=== PATIENT | female | born 2000 | race American Indian/Alaskan Native ===

== ENCOUNTER 2019-03-04 09:34 | Emergency (ER) | payer OTHER, MEDICAID ==
[2019-03-04 09:41] VITALS: BP 117/59
--- NOTE | 2019-03-04 10:52 | Emergency Department Report ---
Vomiting/Diarrhea - HPI Chief Complaint: Nausea/Vomiting/Diarrhea Stated Complaint: ABD PAIN/NAUSEA Duration: 1 week Severity: mild Nausea/Vomiting Severity: Mild Diarrhea Severity: None Pain Location: Generalized Pain Severity: Mild Symptoms: Yes Able to Tolerate Fluids, No Watery Diarrhea, No Bloody diarrhea, No Fever, No Recent Unusual Foods, No Recent Untreated Water, No Recent use of Antibiotics, No Family w/ Similar Symptoms, No Contacts w/ Similar Symptoms, No Rash, No Hematuria, No Recent URI Symptoms Other History: This is a 18-year-old female presents with nausea, vomiting, and abdominal pain for one week. Last period 01/28/2019 0. Patient stated she is concerned about possible . Reports abdominal pain as a cramping sensation that is intermittent. She is currently off control. She denies vaginal discharge, bleeding, dysuria, urinary frequency, urgency, or back pain. ED Review of Systems ROS: Stated complaint: ABD PAIN/NAUSEA Other details as noted in HPI Constitutional: denies: chills, fever Respiratory: denies: cough, shortness of breath, wheezing Cardiovascular: denies: chest pain, palpitations Gastrointestinal: abdominal pain, nausea, vomiting. denies: diarrhea Genitourinary: denies: urgency, dysuria, discharge Skin: denies: rash, lesions Neurological: denies: headache, weakness, paresthesias Psychiatric: denies: anxiety, depression ED Past Medical Hx - Past Medical History Previous Medical History?: No - Surgical History Past Surgical History?: No - Social History Smoking Status: Current Some Day Smoker Substance Use Type: Marijuana - Medications Home Medications: Home Medications Medication Instructions Recorded Confirmed Last Taken Type 21/Iron Fu/Folic Acid 1 each PO DAILY #30 tablet 03/04/19 Unknown Rx [ Complete Caplet] Vomiting Diarrhea Exam - Exam General: Vital signs noted. No distress. Alert and acting appropriately. HEENT: Yes Moist Mucous Membranes, No Pharyngeal Erythema, No Pharyngeal Exudates, No Rhinorrhea, No Conjuctival Injection, No Frontal Tenderness, No Maxillary Tenderness Neck: No Adenopathy, No Rigidity Lungs: Yes Clear Lung Sounds, Yes Good Air Exchange, No Wheezes, No Stridor, No Cough, No Nasal Flaring, No Retractions, No Use of Accessory Muscles Heart exam: Regular: Yes, Murmur: No, Tachycardia: No Abdomen: Tenderness: No, Peritoneal Signs: No, Distention: No, Hyperactive Bowel sounds: No Skin exam: Rash: No, Edema: No, Normal turgor: Yes Neurologic: Alert and oriented, no deficits. Musculoskeletal: Unremarkable. ED Course Vital Signs 03/04/19 09:40 Temperature 99.3 F Pulse Rate 95 H Respiratory 18 Rate Blood Pressure 117/59 O2 Sat by Pulse 99 Oximetry ED Medical Decision Making - Lab Data Lab Results 03/04/19 03/04/19 Range/Units 11:32 Unknown HCG, Quant 1447 H (0-4) mIU/mL Urine Color Yellow (Yellow) Urine Turbidity Slightly-cloudy (Clear) Urine pH 6.0 (5.0-7.0) Ur Specific [place] 1.030 (1.003-1.030) Urine Protein <15 mg/dl (Negative) mg/dL Urine Glucose (UA) Neg (Negative) mg/dL Urine Ketones Tr (Negative) mg/dL Urine Blood Neg (Negative) Urine Nitrite Neg (Negative) Urine Bilirubin Neg (Negative) Urine Urobilinogen < 2.0 (<2.0) mg/dL Ur Leukocyte Esterase Sm (Negative) Urine WBC (Auto) 6.0 (0.0-6.0) /HPF Urine RBC (Auto) 4.0 (0.0-6.0) /HPF U Epithel Cells (Auto) 9.0 (0-13.0) /HPF Urine Bacteria (Auto) 4+ (Negative) /HPF Urine Mucus 2+ /HPF Urine HCG, Qual Positive A (Negative) - Radiology Data Radiology results: report reviewed ULTRASOUND OB LESS THAN 14 WEEKS FETUS ULTRASOUND OB TRANSVAGINAL HISTORY: Abdominal pain and confirmed . COMPARISON: None. TECHNIQUE: Transabdominal and transvaginal ultrasound with color doppler interrogation. FINDINGS: Uterus: Anteverted. 7.3 x 3.5 x 4.3 cm. A few small scattered uterine fibroids are suspected. Endometrium: 12 mm in thickness. A tiny cyst is identified in the uterine fundus which probably represents a very early gestational sac. No pole, yolk sac or heart rate could be detected at this time. Gestational sac diameter correlates with a four-week six-day . Right ovary: 3.8 x 2.8 x 2.5 cm. There is a complex partially cystic area in the right ovary measuring up to 2.4 cm. This probably represents a corpus luteum cyst. Left ovary: 2.2 x 1.1 x 2.2 cm. No focal abnormality. No pelvic fluid or mass is identified. Normal color doppler interrogation. IMPRESSION: Probable very early intrauterine as described. Followup is recommended. - Medical Decision Making Patient was examined by me. Vitals are normal and patient is in no acute distress. Obtained a urinalysis, urine hCG, hCG quant, and OB ultrasound. Quant 1447 all other labs unremarkable. Probable very early intrauterine as described. Followup is recommended. Patient instructed to have repeat hCG quant in 48 hours with [facility] or in ER to r/o ectopic . Start complete. Patient discharged home in stable condition. Critical care attestation.: If time is entered above; I have spent that time in minutes in the direct care of this critically ill patient, excluding procedure time. ED Disposition Clinical Impression: confirmed by positive blood test, Threatened miscarriage in early Nausea and vomiting Qualifiers: Vomiting type: unspecified Vomiting Intractability: non-intractable Qualified Code(s): R11.2 - Nausea with vomiting, unspecified Abdominal pain Qualifiers: Abdominal location: generalized Qualified Code(s): R10.84 - Generalized a bdominal pain Disposition: TO HOME OR SELFCARE Is pt being admited?: No Does the pt Need Aspirin: No Condition: Stable Instructions: Morning Sickness (ED), (ED) Additional Instructions: Have repeat hCG quant labs in 48 hours with [facility] or ER. Your hCG quantitative on this visit was 1447. Remain on bed rest. Follow up with [facility] in 24-48 hours. Return to ER if increased vaginal bleeding, abdominal pain, and low back pain. Prescriptions: 21/Iron Fu/Folic Acid [ Complete Caplet] 1 each PO DAILY #30 tablet Referrals: MICHEL CALDWELL MD [Primary Care Provider] - 3-5 Days [facility] [Provider Group] - 3-5 Days [facility] [Provider Group] - 3-5 Days [facility] [Provider Group] - 3-5 Days Forms: Work/School Release Form(ED) Time of Disposition: 12:55
[2019-03-04 11:11] LABS: Bacteria,Urine 4+ /HPF (Negative); Bilirubin,Urine NEG (Negative); Blood,Urine NEG (Negative); Color,Urine Yellow (Yellow); Mucus,Urine 2+ /HPF; Protein,Urine <15 mg/dL mg/dL (Negative); Urobilinogen,Urine < 2.0 mg/dL (<2.0)
[2019-03-04 11:14] LABS: HCG Qualitative,Urine Positive (Negative)
--- NOTE | 2019-03-04 12:25 | Ultrasound Report ---
ULTRASOUND OB LESS THAN 14 WEEKS FETUS ULTRASOUND OB TRANSVAGINAL HISTORY: Abdominal pain and confirmed . COMPARISON: None. TECHNIQUE: Transabdominal and transvaginal ultrasound with color doppler interrogation. FINDINGS: Uterus: Anteverted. 7.3 x 3.5 x 4.3 cm. A few small scattered uterine fibroids are suspected. Endometrium: 12 mm in thickness. A tiny cyst is identified in the uterine fundus which probably represents a very early gestational sac. No pole, yolk sac or heart rate could be detected at this time. Gestational sac diameter correlates with a four-week six-day . Right ovary: 3.8 x 2.8 x 2.5 cm. There is a complex partially cystic area in the right ovary measuring up to 2.4 cm. This probably represents a corpus luteum cyst. Left ovary: 2.2 x 1.1 x 2.2 cm. No focal abnormality. No pelvic fluid or mass is identified. Normal color doppler interrogation. IMPRESSION: Probable very early intrauterine as described. Followup is recommended.
== END 2019-03-04 13:08 | disposition home or self-care (01) ==
LOC: ED 09:34
DX: O20.0 Threatened abortion (principal); O21.9 Vomiting of pregnancy, unspecified; O99.331 Smoking (tobacco) complicating pregnancy, first trimester; F12.10 Cannabis abuse, uncomplicated; Z3A.01 Less than 8 weeks gestation of pregnancy
CPT/HCPCS: 36415; 76801; 76817; 81001; 81025; 84702; 99284

== ENCOUNTER 2019-03-23 06:32 | Emergency (ER) | payer OTHER, MEDICAID ==
[2019-03-23 07:14] LABS: Basophils % (Auto) 0.6 % (0.0-1.8); Eosinophils # (Auto) 0.1 K/mm3 (0.0-0.4); Hematocrit 37.7 % (30.3-42.9); Hemoglobin 12.6 gm/dl (10.1-14.3); Lymphocytes # (Auto) 1.8 K/mm3 (1.2-5.4); Lymphocytes % (Auto) 23.6 % (13.4-35.0); Mean Corpuscular HGB Conc 33 % (30-34); Mean Corpuscular Volume 82 fl (79-97); Monocytes # (Auto) 0.4 K/mm3 (0.0-0.8); Monocytes % (Auto) 5.5 % (0.0-7.3); Platelet Count 332 K/mm3 (140-440); Red Blood Count 4.58 M/mm3 (3.65-5.03); Red Cell Distribution Width 13.7 % (13.2-15.2)
[2019-03-23 07:15] LABS: Bacteria,Urine 4+ /HPF (Negative); Bilirubin,Urine NEG (Negative); Blood,Urine LG (Negative); Color,Urine Yellow (Yellow); Mucus,Urine 3+ /HPF; Protein,Urine <15 mg/dL mg/dL (Negative); Urobilinogen,Urine < 2.0 mg/dL (<2.0)
--- NOTE | 2019-03-23 09:14 | Emergency Department Report ---
ED HPI - General Chief complaint: Vaginal Bleeding Stated complaint: 7WKS /SPOTTING Time Seen by Provider: 03/23/19 07:53 Source: patient Mode of arrival: Ambulatory Limitations: No Limitations - History of Present Illness Initial comments: This is a 18-year-old female nontoxic, well nourished in appearance, no acute signs of distress presents to the ED with c/o of vaginal bleeding x1 day. Patient stated yesterday she noticed some spotting this morning x3 occasions and primarily only when she wipes after the restroom. Patient denies any abdominal or pelvic pain. Patient denies any vaginal discharge or foul odor. Patient den ies any nausea, vomiting, chest pain, shortness of breathe, fever, chills, headache, stiff neck, numbness, tingling. Patient denies any urinary symptoms. Patient denies any allergies or PMH. MD Complaint: vaginal bleeding -: days(s) (1) Severity scale (0 -10): 0 Improves with: none Worsens with: none Associated symptoms: vaginal bleeding. denies: nausea/vomiting, vaginal discharge, abdominal pain, dysuria, headache, vision changes, malaise, dysp aruenia, rash, seizure, shortness of breath, syncope, weakness Vaginal bleeding: light :: Yes Number of weeks : 7 Pre-bayron care: none - Related Data Previous Rx's Medication Instructions Recorded Last Taken Type 21/Iron Fu/Folic Acid 1 each PO DAILY #30 tablet 03/04/19 Unknown Rx [ Complete Caplet] 21/Iron Fu/Folic Acid 1 each PO DAILY #30 tablet 03/23/19 Unknown Rx [ Complete Caplet] Allergies Allergy/AdvReac Type Severity Reaction Status Date / Time No Known Allergies Allergy Unverified 03/04/19 09:36 ED Review of Systems ROS: Stated complaint: 7WKS /SPOTTING Other details as noted in HPI Constitutional: denies: chills, fever Eyes: denies: eye pain, eye discharge, vision change ENT: denies: ear pain, throat pain Respiratory: denies: cough, shortness of breath, wheezing Cardiovascular: denies: chest pain, palpitations Endocrine: no symptoms reported Gastrointestinal: denies: abdominal pain, nausea, diarrhea Genitourinary: abnormal menses. denies: urgency, dysuria, discharge Musculoskeletal: denies: back pain, joint swelling, arthralgia Skin: denies: rash, lesions Neurological: denies: headache, weakness, paresthesias Psychiatric: denies: anxiety, depression Hematological/Lymphatic: denies: easy bleeding, easy bruising ED Past Medical Hx - Past Medical History Previous Medical History?: No - Surgical History Past Surgical History?: No - Social History Smoking Status: Never Smoker - Medications Home Medications: Home Medications Medication Instructions Recorded Confirmed Last Taken Type 21/Iron Fu/Folic Acid 1 each PO DAILY #30 tablet 03/04/19 Unknown Rx [ Complete Caplet] 21/Iron Fu/Folic Acid 1 each PO DAILY #30 tablet 03/23/19 Unknown Rx [ Complete Caplet] ED Physical Exam - General Limitations: No Limitations General appearance: alert, in no apparent distress - Head Head exam: Present: atraumatic, normocephalic - Neck Neck exam: Present: normal inspection, full ROM - GI/Abdominal GI/Abdominal exam: Present: soft, normal bowel sounds. Absent: distended, tenderness, guarding, rebound, rigid, diminished bowel sounds - Extremities Exam Extremities exam: Present: normal inspection, full ROM - Back Exam Back exam: Present: normal inspection, full ROM. Absent: tenderness, CVA tenderness (R), CVA tenderness (L), muscle spasm, paraspinal tenderness, vertebral tenderness, rash noted - Neurological Exam Neurological exam: Present: alert, oriented X3 - Psychiatric Psychiatric exam: Present: normal affect, normal mood - Skin Skin exam: Present: warm, dry, intact, normal color. Absent: rash ED Course Vital Signs 03/23/19 06:37 Temperature 98.7 F Pulse Rate 92 H Respiratory 18 Rate Blood Pressure 116/63 O2 Sat by Pulse 100 Oximetry - Reevaluation(s) Reevaluation #1: 03/23/19 09:15 Patient is speaking in full sentences with no signs of distress noted. ED Medical Decision Making - Lab Data Result diagrams: 03/23/19 06:54 - Medical Decision Making This is a 18-year-old female presents with threatened miscarriage. Patient is stable and was examined by me. Normal abdominal exam. US OB obtained and dictated by the radiologist. Ua obtained. Quantative serum test obtained. Pat ient notified of the US report with no questions noted by the patient. Patient was instructed f/u with [facility] in 2 days. RH factor positive. Labs within normal limits. At time of discharge, the patient does not seem toxic or ill in appearance. No acute signs of distress noted. Patient agrees to discharge treatment plan of care. No further questions noted by the patient. Critical care attestation.: If time is entered above; I have spent that time in minutes in the direct care of this critically ill patient, excluding procedure time. ED Disposition Clinical Impression: Threatened miscarriage Disposition: DC-01 TO HOME OR SELFCARE Is pt being admited?: No Does the pt Need Aspirin: No Condition: Stable Instructions: Threatened Miscarriage (ED) Additional Instructions: Follow-up with a [facility] doctor in 2-3 days or if symptoms worsen and continue return to emergency room as soon as possible. Prescriptions: 21/Iron Fu/Folic Acid [ Complete Caplet] 1 each PO DAILY #30 tablet Referrals: MADDY NAVARRO MD [Primary Care Provider] - 3-5 Days KASEY ADAM MD [Staff Physician] - 3-5 Days [facility] [Provider Group] - 3-5 Days Forms: Work/School Release Form(ED)
--- NOTE | 2019-03-23 09:40 | Ultrasound Report ---
PROCEDURE: US OB <= 14 WEEKS FETUS TECHNIQUE: Early obstetrical ultrasound performed. Transabdominal and transvaginal imaging imaging HISTORY: vaginal bleeding COMPARISON: None FINDINGS: There is an intrauterine gestational sac seen. It contains a yolk sac and pole. [place]-rump length measurement corresponds to gestational age of 7 weeks 4 days and DANIAL of 11/05/2019. cardiac activity seen measured at 133 bpm. There is no abnormal adnexal mass seen. There is no subchorionic hemorrhage seen. IMPRESSION: There is a single live intrauterine of approximately 7 weeks 4 days with corresponding DANIAL of 11/05/2019. This document is electronically signed by Esther Woodall MD., Mar 23 2019 09:38:51 AM ET
--- NOTE | 2019-03-23 09:42 | Ultrasound Report ---
PROCEDURE: US OB TRANSVAGINAL TECHNIQUE: Early obstetrical ultrasound performed. Transabdominal and transvaginal imaging imaging HISTORY: vaginal bleeding COMPARISON: None FINDINGS: There is an intrauterine gestational sac seen. It contains a yolk sac and pole. [place]-rump length measurement corresponds to gestational age of 7 weeks 4 days and DANIAL of 11/05/2019. cardiac activity seen measured at 133 bpm. There is no abnormal adnexal mass seen. There is no subchorionic hemorrhage seen. IMPRESSION: There is a single live intrauterine of approximately 7 weeks 4 days with corresponding DANIAL of 11/05/2019. This document is electronically signed by Esther Woodall MD., Mar 23 2019 09:40:07 AM ET
[2019-03-23 10:40] VITALS: BP 121/74
== END 2019-03-23 10:40 | disposition home or self-care (01) ==
LOC: ED 06:32
DX: O20.0 Threatened abortion (principal); Z3A.01 Less than 8 weeks gestation of pregnancy
CPT/HCPCS: 36415; 76801; 76817; 81001; 84702; 85025; 86850; 86900; 86901; 99284

== ENCOUNTER 2022-03-11 18:22 | Inpatient (IN) | payer OTHER, MEDICAID ==
[2022-03-11] MEDS ORDERED: OXYTOCIN 10 UNIT/1 ML INJ IM PRN (19:44)
[2022-03-11] MEDS ORDERED: LOPERAMIDE 2 MG CAP PO PRN (19:44)
[2022-03-11] MEDS ORDERED: METHYLERGONOVINE MALEATE 0.2 MG/ML VIAL IM PRN (19:44)
[2022-03-11] MEDS ORDERED: miSOPROStol 200 MCG TAB PR PRN (19:44)
[2022-03-11] MEDS ORDERED: TERBUTALINE 1 MG/1 ML INJ SUB-Q PRN (19:44)
[2022-03-11] MEDS ORDERED: ACETAMINOPHEN 325 MG TAB PO PRN (19:44)
[2022-03-11] MEDS ORDERED: ONDANSETRON 4 MG/2 ML INJ IV PRN (19:44)
[2022-03-11] MEDS ORDERED: ePHEDrine SULFATE 50 MG/1 ML INJ IV PRN (19:44)
[2022-03-11] MEDS ORDERED: CARBOPROST TROMETHAMINE 250 MCG/1 ML INJ IM PRN (19:44)
[2022-03-11] MEDS ORDERED: fentaNYL 100 MCG/2 ML INJ IV PRN (19:44)
[2022-03-11] MEDS ORDERED: MINERAL OIL 30 ML ORAL LIQD PO PRN (19:44)
[2022-03-11] MEDS ORDERED: BUTORPHANOL 2 MG/1 ML INJ IV PRN (19:44)
[2022-03-11] MEDS ORDERED: LACTATED RINGERS 1,000 ML IV SCH (19:45)
[2022-03-11] MEDS ORDERED: OXYTOCIN DRIP 30 UNITS/500 ML BAG IV SCH (20:00)
[2022-03-11] MEDS ORDERED: LIDOCAINE (2%) 20 MG/1 ML VIAL 20 ML MDV INFILTRATI ONE (20:15)
--- NOTE | 2022-03-11 20:46 | Ultrasound Report ---
ULTRASOUND OBSTETRIC LIMITED ULTRASOUND BIOPHYSICAL PROFILE INDICATION / CLINICAL INFORMATION: r/o pprom today. Clinical Gestational Age (GA) in weeks, days: Unknown TECHNIQUE: Transabdominal. COMPARISON: None available. FINDINGS: Single intrauterine in cephalic position. BREATHING MOVEMENT = 2 GROSS BODY MOVEMENT = 2 TONE = 2 QUALITATIVE AMNIOTIC FLUID VOLUME = 2 TOTAL BIOPHYSICAL SCORE = 8/8 HEART RATE (beats per minute): 149 AMNIOTIC FLUID INDEX (cm) = 9.1 (normal = 7-24 cm) PRESENTATION: Cephalic. ADDITIONAL FINDINGS: None. IMPRESSION: 1. Single intrauterine with Biophysical Score = 8/8 2. Normal KENDALL. Signer Name: Stuart Reyes MD Signed: 03/11/2022 8:41 PM Workstation Name: [email or web address]
[2022-03-11] MEDS ORDERED: AMPICILLIN/NS 2 GM/100 ML 2 GM/100 ML BAG IV ONE (21:00)
[2022-03-11] MEDS ORDERED: BETAMET ACET/BETAMET NA PH 6 MG/ML INJ 5 ML MDV IM ONE (21:00)
[2022-03-11 21:07] LABS: Hematocrit 31.3 % (30.3-42.9); Hemoglobin 10.5 gm/dl (10.1-14.3); Mean Corpuscular HGB Conc 33 % (30-34); Mean Corpuscular Volume 76 fl (79-97); Platelet Count 318 K/mm3 (140-440); Red Blood Count 4.14 M/mm3 (3.65-5.03); Red Cell Distribution Width 15.2 % (13.2-15.2)
[2022-03-11 21:16] LABS: Bacteria,Urine 1+ /HPF (Negative); Bilirubin,Urine NEG (Negative); Blood,Urine SM (Negative); Color,Urine Yellow (Yellow); Mucus,Urine 1+ /HPF; Protein,Urine <15 mg/dL mg/dL (Negative)
[2022-03-11 21:24] LABS: Amphetamine Screen,Urine Negative; Benzodiazepines Screen,Urine Negative; Cannabinoid Screen,Urine Negative; Cocaine Screen,Urine Negative; Methadone Screen,Urine Negative; Opiate Screen,Urine Negative
[2022-03-11 21:45] LABS: Hepatitis C Virus Antibody Non-Reactive (NonReactive)
[2022-03-11] MEDS ORDERED: PENICILLIN G POTASSIUM 5 MIL.UNITS in SODIUM CHLORIDE 0.9% 50 ML IV ONE (22:00)
--- NOTE | 2022-03-12 01:15 | History and Physical Report ---
History of Present Illness Date of examination: 03/12/22 Date of admission: 03/11/22 19:44 Chief complaint: LOF History of present illness: at 35.4ks by LMP c/w U/S. care at [facility]. pt here with at 17:30pm on 03/11/22. Pt denies vag bleed or headache or painful ctx. Pt admits to movement. records with A positive, rubella immune, HepBsAg neg, HIV negative and RPR Non-reactive. GBS negative 12/30/21 which is more than wks ago. Past History Past Medical History: no pertinent history Past Surgical History: no surgical history Family/Genetic History: none Social history: no significant social history - Obstetrical History Expected Date of Delivery: 04/12/22 Actual Gestation: 35 Week(s) 4 Day(s) : 2 Hx # Term Pregnancies: 1 Number of Living Children: 1 Medications and Allergies Allergies Allergy/AdvReac Type Severity Reaction Status Date / Time No Known Allergies Allergy Verified 03/11/22 21:43 Home Medications Medication Instructions Recorded Confirmed Last Taken Type 21/Iron Fu/Folic Acid 1 each PO DAILY #30 tablet 03/04/19 Unknown Rx [ Complete Caplet] 21/Iron Fu/Folic Acid 1 each PO DAILY #30 tablet 03/23/19 Unknown Rx [ Complete Caplet] HYDROcodone/APAP 5-325 [[place] 1 each PO Q6HR PRN #12 tablet 05/27/20 Unknown Rx 5-325 mg TAB] Active Meds: Active Medications Acetaminophen (Acetaminophen 325 Mg Tab) 650 mg PO Q4H PRN PRN Reason: Pain, Mild (1-3) Butorphanol Tartrate (Butorphanol 2 Mg/1 Ml Inj) 2 mg IV Q2H PRN PRN Reason: Pain , Severe (7-10) Carboprost Tromethamine (Carboprost Tromethamine 250 Mcg/1 Ml Inj) 250 mcg IM ONCE PRN PRN Reason: Uterine Bleeding Ephedrine Sulfate (Ephedrine Sulfate 50 Mg/1 Ml Inj) 10 mg IV Q2M PRN PRN Reason: Hypotension Fentanyl (Fentanyl 100 Mcg/2 Ml Inj) 100 mcg IV Q2H PRN PRN Reason: Pain,Severe (7-10) LABOR PAIN Lactated Ringer's (Lactated Ringers) 1,000 mls @ 125 mls/hr IV DIRECT KIMBERLY Last Admin: 03/11/22 21:54 Dose: 125 mls/hr Oxytocin/Sodium Chloride (Pitocin/Ns 30 Unit/500ml) 30 units in 500 mls @ 40 mls/hr IV TITR KIMBERLY; Protocol Penicillin G Potassium 3 mil. (units/ Sodium Chloride) 50 mls @ 100 mls/hr IV Q4H KIMBERLY; Protocol Loperamide HCl (Loperamide 2 Mg Cap) 2 mg PO ONCE PRN PRN Reason: give with Hemabate Methylergonovine Maleate (Methylergonovine Maleate 0.2 Mg/Ml Vial) 0.2 mg IM ONCE PRN PRN Reason: Uterine Bleeding Mineral Oil (Mineral Oil 30 Ml Oral Liqd) 30 ml PO QHS PRN PRN Reason: Constipation Misoprostol (Misoprostol 200 Mcg Tab) 800 mcg SC ONCE PRN PRN Reason: Uterine Bleeding Ondansetron HCl (Ondansetron 4 Mg/2 Ml Inj) 4 mg IV Q8H PRN PRN Reason: Nausea And Vomiting Oxytocin (Oxytocin 10 Unit/1 Ml Inj) 10 unit IM ONCE PRN PRN Reason: Uterine Bleeding Terbutaline Sulfate (Terbutaline 1 Mg/1 Ml Inj) 0.25 mg SUB-Q ONCE PRN PRN Reason: Hyperstimulation/Hypertonicity Review of Systems All systems: negative (leakage of fluid) - Vital Signs Vital signs: Vital Signs Pulse Pulse Ox 116 H 100 03/11/22 18:24 03/11/22 18:24 Temp Pulse Resp BP Pulse Ox 98.0 F 85 99 03/11/22 21:42 03/12/22 00:51 03/12/22 00:51 - Physical Exam Breasts: Positive: deferred Cardiovascular: Regular rate Lungs: Positive: Normal air movement Abdomen: Positive: soft Genitourinary (Female): Positive: normal external genitalia Vagina: Positive: normal moisture Uterus: Positive: enlarged (non-tender) - Obstetrical FHR: category 1 Uterine Contraction Monitor Mode: External Cervical Dilatation: 4 (2cm in triage) Cervical Effacement Percentage: 80 station: -1 Uterine Contraction Pattern: Irregular Uterine Contraction Intensity: Mild Results Result Diagrams: 03/11/22 20:48 Abnormal lab results 03/11/22 03/11/22 Range/Units 18:34 20:48 MCV 76 L (79-97) fl MCH 25 L (28-32) pg Membranes Rupture Positive A (Negative) All other labs normal. Assessment and Plan PPROM at 35.2wk with clear fluid confirmed with rom plus, KENDALL 9 in latent labor; unknown GBS (that is, the 35wk GBS was not redone) s/p betamethasone 12mg 1. Pt admitted over 4hrs however just receiving the GBS prophylaxis with PCN 5 per her nurse due to pharmacy not delivering the med 2. Will augment labor with IV pitocin when pt is about to get her next dose 3. May have epidural when desired 4. U/S for EFW still to be done. Pt is only 4ft 11 Plan of care discussed with pt, expect
[2022-03-12] MEDS ORDERED: PENICILLIN G POTASSIUM 3 MIL.UNITS in SODIUM CHLORIDE 0.9% 50 ML IV SCH (02:00)
--- NOTE | 2022-03-12 02:15 | Ultrasound Report ---
US OB limited INDICATION / CLINICAL INFORMATION: weight and placental location COMPARISON: None available. TECHNIQUE: Using a transcutaneous probe, multiple grayscale, color Doppler, and spectral Doppler imag es of the uterus and fetus were captured and stored. FINDINGS: Single cephalic fetus with heart rate of 130 bpm is demonstrated. Anterior placenta demonstrated. No ultrasound abnormality of the placental interface is demonstrated. Biparietal Diameter = 7.9 cm = 31, 6 weeks, days Head Circumference = 28.8 cm = 31, 4 weeks, days Abdominal Circumference = 27.0 cm = 31, 1 weeks, days Femur Length = 6.7 cm = 34, 4 weeks, days Average Ultrasound Age (AUA) = 32, 2 weeks, days. EDC 05/05/2022. Estimated weight = 1942 g. IMPRESSION: 1. Single living intrauterine fetus with estimated weight of 1942 g, anterior placenta. Signer Name: Francis Ta II, MD Signed: 03/12/2022 2:10 AM Workstation Name: [id number]
--- NOTE | 2022-03-12 08:49 | Event Note ---
Date: 03/12/[address] Roger request: 2. APA consult ordered per Dr. Roger request.
--- NOTE | 2022-03-12 09:00 | Event Note ---
Date: 03/12/[address] Hinojosa at [facility] and he states he will come and see the patient. He states to order the second dose of Celestone. Order put in. Notified Dr. Roger, patient's nurse, and patient re: Dr. Hinojosa's recommendation. Informed nurse to discontinue Pitocin at this time.
--- NOTE | 2022-03-12 09:14 | Event Note ---
Date: 03/12/[address] Mello concerning this patient and the pharmacist intern spoke with Dr. Hinojosa from the same practice at the same time. When I called Jeannie ROBERTO with the recommendations that I got with current wt percentile 1% by Dr. Mello and the recommendation to augment, pelvic exam by Jeannie the same as my pelvic exam at 4cm, I will make every effort to obtain the earliest ultrasound and pitocin will be placed on hold, pt to continue GBS prophylaxis; Will also send GBS cultures as augmentation has stopped and no need for abx if pt repeat cx is negative. Per Dr. Mello, he will contact Dr. Hinojosa and he Dr. Mello will see the pt. All of the information was communicated to FELISA Dennis.
[2022-03-12] MEDS ORDERED: diphenhydrAMINE 50 MG/ML VIAL IV PRN (09:30)
[2022-03-12] MEDS ORDERED: ePHEDrine SULFATE 50 MG/1 ML INJ IV PRN (09:30)
[2022-03-12] MEDS ORDERED: MAGNESIUM HYDROXIDE (MOM) ORAL LIQD UDC PO PRN (10:00)
[2022-03-12] MEDS ORDERED: ACETAMINOPHEN 325 MG TAB PO PRN (10:00)
[2022-03-12] MEDS ORDERED: NalbUPHINE 10 MG/1 ML INJ IV PRN (10:00)
[2022-03-12] MEDS ORDERED: LACTATED RINGERS 250 ML IV SOLN IV ONE (10:00)
[2022-03-12] MEDS ORDERED: WITCH HAZEL/ GLYCERIN PAD TP PRN (10:00)
[2022-03-12] MEDS ORDERED: fentaNYL-BUPIV 2 MCG/ML-0.125% 200 MCG/100 ML BAG EPIDURAL SCH (10:00)
[2022-03-12] MEDS ORDERED: ONDANSETRON 4 MG/2 ML INJ IV PRN ×2 (10:00)
[2022-03-12] MEDS ORDERED: LANOLIN/ZINC/DIMETHICONE (LANSINOH) 7 GM TP PRN ×2 (10:00)
[2022-03-12] MEDS ORDERED: NALOXONE 2 MG/2 ML INJ IV PRN (10:00)
[2022-03-12] MEDS ORDERED: BENZOCAINE/MENTHOL 20/0.5% TOP SPRAY 56 GM TP PRN (10:00)
--- NOTE | 2022-03-12 10:13 | Procedure Note ---
OB Delivery Note - Delivery Date of Delivery: 03/12/22 Surgeon: MAGALIE SAMUELS Estimated blood loss: other (150 cc) - Vaginal Delivery presentation: vertex Delivery position: OP Intrapartum events: labor-<37 weeks, PROM->1hr before delivery Delivery augmentation: pitocin Delivery monitor: external FHT, external uterine Route of delivery: Delivery placenta: spontaneous Delivery cord: 3 umbilical vessels Episiotomy: none Delivery laceration: none Anesthesia: none Delivery comments: Spontaneous vaginal delivery at 09:28 of liveborn female weighing 4 lb. 13 oz. over intact perineum with apgars of 8/9. Loose nuchal cord times 1, manually reduced. Baby placed skin to skin with mom immediately after delivery. Spontaneous cry and respirations; baby suctioned with bulb syringe and dried with warm blanket. Delayed cord clamping of 30 seconds; 3 vessel cord double clamped and cut and baby taken to radiant warmer for evaluation. Spontaneous delivery of intact placenta and membranes at 09:30. EBL 150 cc. Pitocin to IV fluids after delivery of placenta. Fundus firm and midline. No lacerations noted. Vaginal sweep negative. Sponge count correct. NICU present for due to gestation. Notified Dr. Roger of patient delivery.
--- NOTE | 2022-03-12 12:05 | Event Note ---
Date: 03/12/22 I arrived to patient's room after called by Jeannie ROBERTO who stated cervix changed from 4cm to 9cm less than 15min and pt wanted me to deliver however when I arrived within 20mins, pt already delivered. I notified Dr. Mello on my way to the hospital so that he did not have to come with imminent delivery and also reassured him per NICU team that the baby was consistent with gest age at 35wks. Baby doing well and Fundus firm. I was already in patient's room when I received text from Jeannie that the pt delivered. Mom doing well and resting.
[2022-03-12] MEDS: HYDROcodone/ACETAMINOPHEN 5-325 MG TAB PO PRN ×2 (12:28→22:52)
[2022-03-12] MEDS: DOCUSATE SODIUM 100 MG CAP PO SCH ×2 (12:29→22:42)
[2022-03-12] MEDS: FERROUS SULFATE 325 MG TAB PO SCH ×2 (12:29→22:42)
[2022-03-12] MEDS: IBUPROFEN 600 MG TAB PO SCH ×2 (12:29→22:00)
[2022-03-12] MEDS ORDERED: BETAMET ACET/BETAMET NA PH 6 MG/ML INJ 5 ML MDV IM ONE (21:00)
[2022-03-12] MEDS ORDERED: BETAMET ACET/BETAMET NA PH 6 MG/ML INJ 5 ML MDV IM SCH (21:00)
[2022-03-13 00:23] LABS: Hematocrit 31.2 % (30.3-42.9); Hemoglobin 9.8 gm/dl (10.1-14.3)
[2022-03-13] MEDS: IBUPROFEN 600 MG TAB PO SCH ×4 (04:09→22:20)
[2022-03-13] MEDS: DOCUSATE SODIUM 100 MG CAP PO SCH ×2 (10:22→22:20)
[2022-03-13] MEDS: FERROUS SULFATE 325 MG TAB PO SCH ×2 (10:23→22:20)
--- NOTE | 2022-03-13 11:30 | Progress Note ---
Assessment and Plan A: PP Dy #1 Asymptomatic Anemia P: Follow Routine Orders Continue FeSO4 325mg PO BID D/C Home in the AM RTO in 6 Weeks Subjective - Subjective Date of service: 03/13/22 Patient reports: appetite normal, voiding normally, pain well controlled, flatus, bowel movement, ambulating normally : in NICU Objective - Vital Signs Latest vital signs: Vital Signs Temp Pulse Resp BP BP Pulse Ox Pulse Ox 03/13/22 08:30 97.9 F 100 H 20 104/65 100 100 03/13/22 04:17 97.8 F 90 20 101/71 98 03/12/22 22:14 97.9 F 113 H 20 100/56 98 03/12/22 20:25 98 03/12/22 16:25 97.8 F 85 20 107/67 98 03/12/22 12:15 99 03/12/22 12:13 98.7 F 103 H 18 117/74 99 Intake and Output 03/12/22 03/13/22 03/13/22 22:59 06:59 14:59 Intake Total 120 Output Total 350 400 Balance -230 -400 Intake: Oral 120 Output: Urine 350 400 Void 350 400 Other: Total, Intake Amount 120 Total, Output Amount 350 400 - Exam Breasts: Present: normal Cardiovascular: Present: Regular rate Lungs: Present: Clear to auscultation, Normal air movement Abdomen: Present: normal appearance, soft, normal bowel sounds Uterus: Present: normal, firm, fundal height below umbilicus Extremities: Present: normal - Labs Labs: Abnormal lab results 03/12/22 Range/Units 23:31 Hgb 9.8 L (10.1-14.3) gm/dl
--- NOTE | 2022-03-13 11:32 | Discharge Summary ---
Providers - Providers Date of Admission: 03/11/22 19:44 Date of discharge: 03/14/22 Attending physician: GIO MERLOS Primary care physician: GIO MERLOS Hospitalization Reason for admission: labor, rupture of membranes Delivery: Episiotomy: none Laceration: none Other procedures: none complications: none Discharge diagnosis: delivery baby: female Condition at discharge: Good Disposition: 01 HOME / SELF CARE / HOMELESS Plan - Provider Discharge Summary Activity: routine, no sex for 6 weeks, no heavy lifting 4 weeks, no strenuous exercise Diet: routine Instructions: routine Additional instructions: [] Smoking cessation referral if applicable(refer to patient education folder for contact #) [] Refer to [facility] Booklet Call your doctor immediately for: * Fever > 100.5 * Heavy vaginal bleeding ( >1 pad per hour) * Severe persistent headache * Shortness of breath * Reddened, hot, painful area to leg or breast * Drainage or odor from incision. * Keep incision clean and dry at all times and follow doctor's instructions regarding bathing/showering - Follow up plan Follow up: GIO MERLOS MD [Primary Care Provider] - 6 Weeks
[2022-03-14 08:26] VITALS: BP 101/68
[2022-03-14] MEDS: DOCUSATE SODIUM 100 MG CAP PO SCH (10:47)
[2022-03-14] MEDS: IBUPROFEN 600 MG TAB PO SCH (10:48)
[2022-03-14] MEDS: FERROUS SULFATE 325 MG TAB PO SCH (10:48)
== END 2022-03-14 13:40 | disposition home or self-care (01) | DRG 805 ==
LOC: TRG 18:22 → LD 18:23 → TRG 19:44 → OBSVTOIN 19:44 → OB 03-12 13:04
PROVIDERS: ADMIT Obstetrics & Gynecology; ATTEND Obstetrics & Gynecology
PROC: 10E0XZZ Delivery of Products of Conception, External Approach (ICD-10-PCS; principal; 2022-03-12)
DX: O42.913 Preterm premature rupture of membranes, unspecified as to length of time between rupture and onset of labor, third trimester (principal); O60.14X0 Preterm labor third trimester with preterm delivery third trimester, not applicable or unspecified; Z37.0 Single live birth; Z3A.35 35 weeks gestation of pregnancy; O99.02 Anemia complicating childbirth; Z20.822 Contact with and (suspected) exposure to COVID-19
CPT/HCPCS: 36415; 76815; 76819; 80307; 81001; 84112; 85014; 85018; 85027; 86592; 86706; 86762; 86803; 86850; 86900; 86901; 87086; 87591; 87806; 99211; G0378; G0463; J0702; J2540; J2590; J7120; U0003